=== PATIENT | male | born 1990 | race African-American/Black ===

== ENCOUNTER 2024-01-12 02:20 | Emergency (ER) | payer OTHER ==
[2024-01-12] MEDS ORDERED: Lidocaine 1% (PF) 30 ML VIAL ONE (02:39)
[2024-01-12] MEDS ORDERED: Cephalexin 250 MG CAP ONE (04:46)
[2024-01-12] MEDS ORDERED: Naproxen 500 MG TAB ONE (04:46)
== END 2024-01-12 04:57 ==
LOC: EEVIPCON 02:20 → NAV ERS 02:20
DX: S01.511A Laceration without foreign body of lip, initial encounter (principal); Y04.0XXA Assault by unarmed brawl or fight, initial encounter; Y92.140 Kitchen in prison as the place of occurrence of the external cause
CPT/HCPCS: 70450; 70486